=== PATIENT | female | born 1945 | race African-American/Black ===

== ENCOUNTER 2021-03-28 10:58 | Emergency (ER) | payer OTHER ==
[~2021-03-28] VITALS: Ht 170.2 cm; Wt 100.0 kg
[2021-03-28] MEDS ORDERED: HYDROCODONE/ACETAMINOPHEN 5/325MG TABLET PO ONE (13:15)
[2021-03-28 13:25] VITALS: BP 150/90
== END 2021-03-28 15:01 | disposition home or self-care (01) ==
LOC: ER 10:58
DX: S79.812A Other specified injuries of left hip, initial encounter (principal); I10 Essential (primary) hypertension; V49.59XA Passenger injured in collision with other motor vehicles in traffic accident, initial encounter; Y93.89 Activity, other specified; Y92.488 Other paved roadways as the place of occurrence of the external cause
CPT/HCPCS: 73502; 99283

== ENCOUNTER 2023-04-28 10:50 | Emergency (ER) | payer OTHER ==
[~2023-04-28] VITALS: Ht 170.2 cm; Wt 97.0 kg
[2023-04-28] MEDS ORDERED: norco (10:57)
[2023-04-28 10:58] VITALS: O2SAT 100
[2023-04-28] MEDS ORDERED: ACETAMINOPHEN 325MG TABLET PO ONE (12:15)
[2023-04-28 14:05] LABS: BASOPHILS % 0.4 % (0.0-2.0); EOSINOPHILS % 2.1 % (0.0-5.0); HEMATOCRIT. 35.6 % (36.0-48.0); HEMOGLOBIN. 11.3 g/dL (12.0-16.0); LYMPHOCYTES % 19.5 % (20.0-50.0); MEAN CORPUSCULAR HEMOGLOBIN 29.2 pg (28.0-32.0); MEAN CORPUSCULAR HGB CONC 31.7 g/dL (31.0-37.0); MEAN CORPUSCULAR VOLUME 92.1 fL (81.0-99.0); MONOCYTES % 11.5 % (2.0-8.0); NEUTROPHILS % 66.5 % (40.0-76.0); PLATELET 283 x1000/uL (130-400); RED BLOOD CELL COUNT 3.87 mill/uL (4.2-5.4); WHITE BLOOD COUNT 8.3 x1000/uL (4.5-11.0)
[2023-04-28 14:10] LABS: CHLORIDE 111 mEq/L (98-107); INDEX HEMOLYSI 1 (1-3); INDEX ICTERIC 1 (1-4); INDEX LIPEMIC 1 (1-3); SODIUM 143 mEq/L (136-145)
[2023-04-28 14:14] LABS: PROTHROMBIN TIME 11.2 sec (9.6-11.0)
[2023-04-28 14:19] LABS: ALANINE AMINOTRANSFERASE 16 IU/L (13-61); ALBUMIN 2.3 g/dL (3.4-5.0); ASPARTATE AMINOTRANSFERASE 19 IU/L (15-37); BILIRUBIN TOTAL 0.7 mg/dL (0.1-1.0); CALCIUM 9.2 mg/dL (8.5-10.1); CARBON DIOXIDE 28 mEq/L (21-32); CREATININE 0.5 mg/dL (0.6-1.3); GLUCOSE 88 mg/dL (70-105); PROTEIN TOTAL 6.1 g/dL (6.0-8.3); UREA NITROGEN BLOOD 9 mg/dL (7-21)
[2023-04-28] MEDS ORDERED: POTASSIUM CHLORIDE 20MEQ TABLET SR PO ONE (14:45)
[2023-04-28 17:40] VITALS: TEMP 98.7
[2023-04-28] MEDS ORDERED: MORPHINE SULFATE 4 MG/ML CPJ (NOT FOR IM USE) IV ONE (19:00)
[2023-04-29 00:13] VITALS: BP 165/76; PULSE 82; RESP 17
== END 2023-04-29 00:58 | disposition home or self-care (01) ==
LOC: ER 10:56
DX: M25.551 Pain in right hip (principal); I10 Essential (primary) hypertension; Z85.9 Personal history of malignant neoplasm, unspecified
CPT/HCPCS: 99285; 72192; 96374; 93971; 80053; 85025; 85610; 86850; 86900; 86901; 36415; 73560; 73701; 76376; J2270